=== PATIENT | female | born 1985 | race Caucasian/White ===

== ENCOUNTER 2016-07-20 19:30 | Emergency (ER) | payer OTHER ==
--- NOTE | 2016-07-20 21:36 | ED ORDER SUMMARY ---
..... Patient: LISE CHRISTOPHER OrderSheet [facility] VisitID: [id number] [place] [address] 31y, F Registration Date/Time: 07/20/2016 ORDER SHEET Weight: 72.5 kg Allergies: No Known Drug Allergy GENERAL ORDERS: CBC w Diff Urgent (19:52 07/20/2016 HBivens A.R.N.P.) (Ack 19:54 CHagerty ER Patch Washer) (20:06 JQuivey R.N.) CMP Urgent (19:52 07/20/2016 HBivens A.R.N.P.) (Ack 19:54 [facility] Patch Washer) (20:06 JQuivey R.N.) UA-Culture if indicated Urgent (19:52 07/20/2016 HBivens A.R.N.P.) (Ack 19:54 [facility] Patch Washer) (20:08 [facility]) Urine Urgent (19:52 07/20/2016 HBivens A.R.N.P.) (Ack 19:54 [facility] Patch Was[facility]) (20:[facility] Lipase Urgent (19:52 07/20/2016 HBivens A.R.N.P.) (Ack 19:54 [facility] Patch Washer) (20:06 JQuivey R.N.) Amylase Urgent (19:52 07/20/2016 HBivens A.R.N.P.) (Ack 19:54 [facility] Patch Washer) (20:06 JQuivey R.N.) MEDICATION ORDERS: IV FLUIDS: IV Saline Lock (19:52 07/20/2016 HBivens A.R.N.P.) (20:06 JQuivey R.N.) Toradol IV 30 mg (NOW) (19:52 07/20/2016 HBivens A.R.N.P.) (20:08 [facility] ORDER SHEET NOTES: [Electronically signed by Mely Cooley (21:55 07/20/2016)] [Electronically signed by Jessica Durham A.R.N.P. (23:51 07/20/2016)] [Electronically locked/signed by Mely Cooley (21:55 07/20/2016)]
--- NOTE | 2016-07-20 21:36 | ED NURSING NOTES ---
Clinical Report - Nurses [facility] [address] [place] [address] 07/20/2016 19:34 Patient: LISE CHRISTOPHER TRIAGE Triage time 0. Acuity: LEVEL 3. Chief Complaint: ABDOMINAL PAIN and (fatigue, low back pain). Alert. No acute distress. --19:46 Mely Cooley 19:43 07/20/16. BP: 113/76. HR: 76. RR: 16. O2 saturation: 100%. Temp: 97.8 F. Pain level now 06/19. --19:46 Mely Cooley. Weight: 72.5 kg. Height/Length: 62 inches. BMI: 29.3. --19:43 Mely Cooley. Medications None. --19:45 Mely Cooley. Medication/allergy information source: the patient. --19:46 Mely Cooley. Allergies No Known Drug Allergy. --19:45 Mely Cooley. History Arrived by private vehicle. Historian: patient. Accompanied by friend. Onset. (1 weeks ago). ( Pt denies UTI sxs). 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 (no tests were done). PAST MEDICAL HX: Last normal menstrual period- July 11. SOCIAL HX: Never smoker. Occasional alcohol use. FALL RISK ASSESSMENT: Fall risk assessment completed. No fall risk identified. NUTRITIONAL RISK ASSESSMENT: The nutritional risk assessment revealed no deficiencies. FUNCTIONAL ASSESSMENT: Functional assessment: no impairments noted. LEARNING NEEDS ASSESSMENT: The learning needs assessment revealed no barriers. SKIN INTEGRITY ASSESSMENT: Skin integrity risk assessment completed. No skin integrity risk identified. --19:46 Mely Cooley. ADDITIONAL SURGERIES: . --19:45 Mely Cooley. Interventions ID band on patient. To treatment room. --19:46 Mely oColey. PHYSICAL ASSESSMENT Ambulatory to room. Patient gowned. GENERAL / NEURO / PSYCH: Alert. Oriented X 4. Appears in no acute distress. HEENT: Mucous membranes are pink. RESPIRATORY: Respirations not labored. Breath sounds within normal limits. CVS: Normal sinus rhythm noted. Capillary refill less than 2 seconds. GI / : Abdomen soft. Abdominal tenderness in the suprapubic area and lower abdomen. Bowel sounds within normal limits. SKIN: Skin is warm and dry. --19:47 Mely Cooley BACK: Normal inspection of the back. ROM of the back is normal, and painless. --19:47 Mely Cooley. NURSING PROGRESS NOTES Head of bed elevated. Reassurance given. Side rails up x 1. Bed placed in lowest position. Brakes of bed on. Patient ready for evaluation- chart flagged. --19:48 Mely Cooley 20:00 07/20/2016 Site #1 started via IV in the right antecubital space with an 20g angiocath, with aseptic technique and good blood return; one attempt. Blood drawn: rainbow set. Labeled in the presence of the patient and sent to the lab. Saline lock flushed with 10 mL saline. --20:06 Milnid Romero, RBarbie 20:08 07/20/2016 Toradol IVP 30 mg given. via site #1. Allergies verified and confirmed 5 rights. IV patency established. IV site checked: no pain, redness, or swelling. IV flushed thoroughly pre- and post-medication administration. IVP given by RN. --20:08 Mely Cooley Reassessment after medication administered. She is resting quietly and has had no adverse reaction. Overall patient status is improved- she states feels better. --21:36 Mely Cooley 21:35 07/20/16. BP: 101/63. HR: 77. RR: 16. O2 saturation: 98%. Pain level now 05/20. --21:36 Mely Cooley. DISPOSITION / DISCHARGE Departure time: 2152. Condition at departure: improved and stable. No learning barriers present. Discharge instructions provided and reviewed with the patient. Reviewed warnings. Reviewed medication(s). Patient verbalized understanding. Written instructions provided in Estonian. The patient was discharged by the nurse practitioner. She was discharged home and accompanied by can line operator. She left the Emergency Department ambulatory and via private vehicle. Scowman driving. --21:54 Mely Cooley. Locked/Released at 07/20/2016 21:55 by Mely Cooley,
--- NOTE | 2016-07-20 21:36 | ED ORDER SUMMARY ---
..... Patient: LISE CHRISTOPHER OrderSheet [facility] VisitID: [id number] [place] [address] 31y, F Registration Date/Time: 07/20/2016 ORDER SHEET Weight: 72.5 kg Allergies: No Known Drug Allergy GENERAL ORDERS: CBC w Diff Urgent (19:52 07/20/2016 HBivens A.R.N.P.) (Ack 19:54 [facility] ER Chuck Wagon Driver) (20:06 JQuivey R.N.) CMP Urgent (19:52 07/20/2016 HBivens A.R.N.P.) (Ack 19:54 [facility] Chuck Wagon Driver) (20:06 JQuivey R.N.) UA-Culture if indicated Urgent (19:52 07/20/2016 HBivens A.R.N.P.) (Ack 19:54 [facility] ER Chuck Wagon Driver) (20:08 [facility]) Urine Urgent (19:52 07/20/2016 HBivens A.R.N.P.) (Ack 19:54 [facility] ER Chuck Wagon Driver) [facility] Lipase Urgent (19:52 07/20/2016 HBivens A.R.N.P.) (Ack 19:54 [facility] Chuck Wagon Driver) (20:06 JQuivey R.N.) Amylase Urgent (19:52 07/20/2016 HBivens A.R.N.P.) (Ack 19:54 [facility] Chuck Wagon Driver) (20:06 JQuivey R.N.) MEDICATION ORDERS: IV FLUIDS: IV Saline Lock (19:52 07/20/2016 HBivens A.R.N.P.) (20:06 JQuivey R.N.) Toradol IV 30 mg (NOW) (19:52 07/20/2016 HBivens A.R.N.P.) (20:[facility] ORDER SHEET NOTES: [Electronically signed by Mely Cooley (21:55 07/20/2016)] [Electronically signed by Jessica Durham A.R.N.P. (23:51 07/20/2016)] [Electronically locked/signed by Mely Cooley (21:55 07/20/2016)]
--- NOTE | 2016-07-20 21:36 | ED NURSING NOTES ---
Clinical Report - Nurses [facility] [address] [place] [address] 07/20/2016 19:34 Patient: LISE CHRISTOPHER TRIAGE Triage time 0. Acuity: LEVEL 3. Chief Complaint: ABDOMINAL PAIN and (fatigue, low back pain). Alert. No acute distress. --19:46 Mely Cooley 19:43 07/20/16. BP: 113/76. HR: 76. RR: 16. O2 saturation: 100%. Temp: 97.8 F. Pain level now 06/19. --19:46 Mely Cooley. Weight: 72.5 kg. Height/Length: 62 inches. BMI: 29.3. --19:43 Mely Cooley. Medications None. --19:45 Mely Cooley. Medication/allergy information source: the patient. --19:46 Mely Cooley. Allergies No Known Drug Allergy. --19:45 Mely Cooley. History Arrived by private vehicle. Historian: patient. Accompanied by friend. Onset. (1 weeks ago). ( Pt denies UTI sxs). 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 (no tests were done). PAST MEDICAL HX: Last normal menstrual period- July 11. SOCIAL HX: Never smoker. Occasional alcohol use. FALL RISK ASSESSMENT: Fall risk assessment completed. No fall risk identified. NUTRITIONAL RISK ASSESSMENT: The nutritional risk assessment revealed no deficiencies. FUNCTIONAL ASSESSMENT: Functional assessment: no impairments noted. LEARNING NEEDS ASSESSMENT: The learning needs assessment revealed no barriers. SKIN INTEGRITY ASSESSMENT: Skin integrity risk assessment completed. No skin integrity risk identified. --19:46 Mely Cooley. ADDITIONAL SURGERIES: . --19:45 Mely Cooley. Interventions ID band on patient. To treatment room. --19:46 Mely Cooley. PHYSICAL ASSESSMENT Ambulatory to room. Patient gowned. GENERAL / NEURO / PSYCH: Alert. Oriented X 4. Appears in no acute distress. HEENT: Mucous membranes are pink. RESPIRATORY: Respirations not labored. Breath sounds within normal limits. CVS: Normal sinus rhythm noted. Capillary refill less than 2 seconds. GI / : Abdomen soft. Abdominal tenderness in the suprapubic area and lower abdomen. Bowel sounds within normal limits. SKIN: Skin is warm and dry. --19:47 Mely Cooley BACK: Normal inspection of the back. ROM of the back is normal, and painless. --19:47 Mely Cooley. NURSING PROGRESS NOTES Head of bed elevated. Reassurance given. Side rails up x 1. Bed placed in lowest position. Brakes of bed on. Patient ready for evaluation- chart flagged. --19:48 Mely Cooley 20:00 07/20/2016 Site #1 started via IV in the right antecubital space with an 20g angiocath, with aseptic technique and good blood return; one attempt. Blood drawn: rainbow set. Labeled in the presence of the patient and sent to the lab. Saline lock flushed with 10 mL saline. --20:06 Milind Romero, RBarbie 20:08 07/20/2016 Toradol IVP 30 mg given. via site #1. Allergies verified and confirmed 5 rights. IV patency established. IV site checked: no pain, redness, or swelling. IV flushed thoroughly pre- and post-medication administration. IVP given by RN. --20:08 Mely Cooley Reassessment after medication administered. She is resting quietly and has had no adverse reaction. Overall patient status is improved- she states feels better. --21:36 Mely Cooley 21:35 07/20/16. BP: 101/63. HR: 77. RR: 16. O2 saturation: 98%. Pain level now 05/20. --21:36 Mely Cooley. DISPOSITION / DISCHARGE Departure time: 2152. Condition at departure: improved and stable. No learning barriers present. Discharge instructions provided and reviewed with the patient. Reviewed warnings. Reviewed medication(s). Patient verbalized understanding. Written instructions provided in Turkmen. The patient was discharged by the nurse practitioner. She was discharged home and accompanied by technology recruiter. She left the Emergency Department ambulatory and via private vehicle. Principle Industrial Hygienist driving. --21:54 Mely Cooley. Locked/Released at 07/20/2016 21:55 by Mely Cooley,
--- NOTE | 2016-07-20 21:36 | ED CLINICAL REPORT ---
Clinical Report - Physicians/Mid Levels [facility] [address] [place] [address] 07/20/2016 19:34 Patient: LISE CHRISTOPHER Time Seen: 1937; initial patient contact, initial documentation, patient care assumed. Arrived- By private vehicle. Historian- patient. HISTORY OF PRESENT ILLNESS Chief Complaint: ABDOMINAL PAIN. This started about 1 weeks ago and is still present. It was abrupt in onset. At its maximum, severity described as severe. When seen in the E.D., severity described as mild. Modifying factors. Not worsened by anything. Not relieved by anything. It is described as "pain" and it is described as located in the right abdomen and left abdomen and in the upper abdomen and radiating to the right lower back and to the left lower back. No nausea, loss of appetite, vomiting or diarrhea. No additional abdominal pain. No recent travel. Similar symptoms previously: Once, as bad. Recent medical care: The patient was seen recently in a clinic. ( went to clinic for same thing, nothing found wrong). REVIEW OF SYSTEMS No constipation, black stools, hematemesis, difficulty with urination or pain with urination. No urinary frequency, fever, chest pain or difficulty breathing. Denies current . All systems otherwise negative, except as recorded above. PAST HISTORY Negative. ADDITIONAL SURGERIES: . --19:45 Mely Cooley. SOCIAL HISTORY Never smoker. Occasional alcohol use. No drug use. No recent travel. Is a local resident. FAMILY HISTORY Negative. ADDITIONAL NOTES The nursing notes have been reviewed with agreement regarding the chief complaint, HPI, ROS, PMH and patient medications and allergies. PHYSICAL EXAM Vital Signs: 07/20/2016 19:43 BP: 113/76. HR: 76. RR: 16. O2 saturation: 100%. Temp: 97.8 F. Have been reviewed as normal and appear to be correct. Appearance: Alert. Oriented X3. No acute distress. Eyes: Pupils equal, round and reactive to light. Eyes normal inspection. Neck: Normal inspection. Neck supple. CVS: Normal heart rate and rhythm. Heart sounds normal. Pulses normal. Respiratory: No respiratory distress. Breath sounds normal. Chest nontender. Abdomen: Soft and nontender. Bowel sounds normal. No organomegaly. No mass. Back: Normal inspection. Skin: Skin warm and dry. Normal skin color. No rash. Normal skin turgor. Extremities: Extremities exhibit normal ROM. No lower extremity edema. Neuro: Oriented X 3. No motor deficit. No sensory deficit. LABS, X-RAYS, AND EKG Laboratory Tests: UA-Culture if indicated: (WILFREDO: 07/20/2016 19:40) ( [facility] 20:32) Final results Test Result Flag Units (Reference) URINE COLOR YELLOW URINE APPEARANCE CLEAR URINE GLUCOSE NEGATIVE (NEGATIVE) URINE BILIRUBIN NEGATIVE (NEGATIVE) URINE KETONE NEGATIVE (NEGATIVE) URINE SPECIFIC GRAVITY 1.025 (1.010-1.030) URINE PH 5.5 (5.0-8.0) URINE PROTEIN NEGATIVE (NEGATIVE) URINE UROBILINOGEN 0.2 EU/dL (0.2-1.0) URINE NITRITE NEGATIVE (NEGATIVE) URINE BLOOD NEGATIVE (NEGATIVE) URINE LEUK ESTERASE NEGATIVE (NEGATIVE) URINE RBC NONE SEEN rbc/hpf (0-1) URINE WBC 1-3 wbc/hpf (0-1) URINE EPITHELIAL CELLS 5-10 EPI/hpf (0-5) URINE BACTERIA MODERATE (2+ TO 3+) (NONE SEEN) URINE COMMENT CULTURE INDICATED URINE CULTURES ARE SET-UP BASED ON THE FOLLOWING CRITERIA:POSITIVE NITRITEPOSITIVE LEUKOCYTE ESTERASEGREATER THAN 10 WHITE BLOOD CELLSMODERATE (2+) OR GREATER BACTERIA Urine: (WILFREDO: 07/20/2016 19:40) ( [facility] 07/20/2016 20:11) Final results Test Result Flag Units (Reference) URINE NEGATIVE CBC w Diff: (WILFREDO: 07/20/2016 20:00) ( [facility] 07/20/2016 20:40) Final results Test Result Flag Units (Reference) WHITE BLOOD COUNT 7.4 K/uL (4.5-11.5) RED BLOOD COUNT 4.45 M/uL (4.00-5.20) HEMOGLOBIN 13.5 gm/dL (12.0-16.0) HEMATOCRIT 40.6 % (36.0-46.0) MEAN CELL VOLUME 91 fL (80-100) MEAN CORPUSCULAR HGB 30 pg (26-34) MEAN CORPUSCULAR HGB CONC 33 g/dL (31-37) RED CELL DISTRIBUTION WIDTH 13.5 % (11.6-14.8) PLATELET COUNT 267 K/uL (150-400) NEUTROPHIL % 48.7 L % (50-75) LYMPH % 41.5 H % (25-40) MONO % 8.0 % (3-14) EOSINOPHIL % 1.2 % (0-4) BASOPHIL % 0.6 % (0-2) CMP: (WILFREDO: 07/20/2016 20:00) ( MsgRcvd 07/20/2016 20:46) Final results Test Result Flag Units (Reference) GLUCOSE 95 mg/dL (70-110) BUN 19 H mg/dL (7-18) CREATININE 0.9 mg/dL (0.6-1.3) Estimated GFR >60 mL/min Estimated GFR- >60 mL/min Note: Persistent reduction over 3 months in eGFR<60 mL/min/1.73 m2 defines CKD. Patients with eGFR values>=60 mL/min/1.73 m2 may also have CKD if evidence ofpersistent proteinuria. Additional information may be foundat www.kidney.org. SODIUM 145 mmol/L (136-145) POTASSIUM 3.4 L mmol/L (3.5-5.1) CHLORIDE 108 H mmol/L (98-107) CARBON DIOXIDE 26 mmol/L (21-32) CALCIUM 8.6 mg/dL (8.5-10.1) TOTAL PROTEIN 7.4 g/dL (6.4-8.2) ALBUMIN 3.7 g/dL (3.3-5.0) BILIRUBIN, TOTAL 0.3 mg/dL (0.0-1.0) ALKALINE PHOSPHATASE 63 U/L (46-116) AST (SGOT) 15 U/L (15-37) ALT (SGPT) 22 U/L (12-78) LIPASE 206 U/L (73-393) AMYLASE 66 U/L (25-115) . PROGRESS AND PROCEDURES Course of Care: 07/20/2016 21:35 BP: 101/63. HR: 77. RR: 16. O2 saturation: 98%. Vital Signs: have been reviewed as normal and appear to be correct. Patient counseled in person regarding the patient's stable condition, test results and diagnosis. 2129. Differential Diagnosis: I considered gastritis, gastroenteritis, peptic ulcer disease, gastroesophageal reflux disease, acute appendicitis, diverticulitis, colon cancer, Crohn's disease, obstipation, biliary colic, cholecystitis, cholelithiasis, hepatitis, pancreatitis, common bile duct obstruction, urinary tract infection, ureterolithiasis, and viral syndrome as a possible cause of abdominal pain in this patient. This is a partial list of diagnoses considered. Above considerations are based on history, physical exam, reassessment and laboratory data. Differential diagnosis was discussed with patient. Disposition: Discharged home in good and improved condition (21:36). Condition: good and stable. CLINICAL IMPRESSION Acute abdominal pain of undetermined cause. INSTRUCTIONS Warnings: GENERAL WARNINGS: Return or contact your physician immediately if your condition worsens or changes unexpectedly, if not improving as expected, or if other problems arise. SPECIFICALLY, return if you develop pain in the abdomen or pelvis, fever, the inability to keep fluids down, blood in vomitus, blood in diarrhea, fainting or lightheadedness. Prescription Medications: Ultram 50 mg tablets: take 1-2 orally every 6 hours as needed for pain. Dispense twenty (20). No refills. Substitution is permissible. Follow-up: Follow up with your doctor in about two days even if well. Call for an appointment. Summary of care provided to patient. Understanding of the discharge instructions verbalized by patient. (Electronically signed by Jessica Durham A.R.N.P. 07/20/2016 23:51)
--- NOTE | 2016-07-20 23:51 | ED MED RECONCILIATION SUMMARY ---
Patient: LISE CHRISTOPHER Medication Reconciliation Report [facility] VisitID: [id number] [address] [place] [address] 31y, F Registration Date/Time: 07/20/2016 Weight: 72.5 kg Height/Length: 62 in. BMI: 29.3 ALLERGIES: No Known Drug Allergy The patient's Home Medications are listed below: NONE. The source(s) of the original Home Medication information: patient The following Medications were given to the patient in the Emergency Department: Toradol [IVP] IVP 30 mg, administered: 07/20/2016 8:08:00 PM The following Medications were prescribed to the patient: Ultram 50 mg tablets: take 1-2 orally every 6 hours as needed for pain. Dispense twenty (20). No refills. Substitution is permissible. -- Jessica Durham A.R.N.P.
--- NOTE | 2016-07-20 23:51 | ED DISCHARGE INSTRUCTIONS ---
Patient: LISE CHRISTOPHER General Instructions [facility] VisitID: [id number] [place] [address] 31y, F Registration Date/Time: 07/20/2016 Acute abdominal pain of undetermined cause. INSTRUCTIONS Warnings: GENERAL WARNINGS: Return or contact your physician immediately if your condition worsens or changes unexpectedly, if not improving as expected, or if other problems arise. SPECIFICALLY, return if you develop pain in the abdomen or pelvis, fever, the inability to keep fluids down, blood in vomitus, blood in diarrhea, fainting or lightheadedness. Prescription Medications: Ultram 50 mg tablets: take 1-2 orally every 6 hours as needed for pain. Dispense twenty (20). No refills. Substitution is permissible. Follow-up: Follow up with your doctor in about two days even if well. Call for an appointment. Summary of care provided to patient. Understanding of the discharge instructions verbalized by patient. ADDITIONAL INFORMATION Abdominal Pain, Unknown Cause (Female) The exact cause of your abdominal (stomach) pain is not certain. This does not mean that this is something to worry about, or the right tests were not done. Everyone likes to know the exact cause of the problem, but sometimes with abdominal pain, there is no clear-cut cause, and this could be a good thing. The good news is that your symptoms can be treated, and you will feel better. Your condition does not seem serious now; however, sometimes the signs of a serious problem may take more time to appear. For this reason,it is important for you to watch for any new symptoms, problems,or worsening of your condition. Over the next few days, the abdominal pain may come and go, or be continuous. Other common symptoms can include nausea and vomiting. Sometimes it can be difficult to tell if you feel nauseous, you may just feel bad and not associate that feeling with nausea. Constipation, diarrhea, and a fever may go along with the pain. The pain may continue even if treated correctly over the following days. Depending on how things go, sometimes the cause can become clear and may require further or different treatment. Additional evaluations, medications, or tests may be needed. Home care Your health care provider may prescribe medications for pain, symptoms, or an infection. Follow the health care provider's instructions for taking these medications. General care Rest until your next exam. No strenuous activities. Try to find positions that ease discomfort. A small pillow placed on the abdomen may help relieve pain. Something warm on your abdomen (such as a heating pad) may help, but be careful not to burn yourself. Diet Do not force yourself to eat, especially if having cramps, vomiting, or diarrhea. Water is important so you do not get dehydrated. Soup may also be good. Sports drinks may also help, especially if they are not too acidic. Make sure you don't drink sugary drinks as this can make things worse. Take liquids in small amounts. Do not guzzle them. Caffeine sometimes makes the pain and cramping worse. Avoid dairy products if you have vomiting or diarrhea. Don't eat large amounts at a time. Wait a few minutes between bites. Eat a diet low in fiber (called a low-residue diet). Foods allowed include refined breads, white rice, fruit and vegetable juices without pulp, tender meats. These foods will pass more easily through the intestine. Avoid whole-grain foods, whole fruits and vegetables, meats, seeds and nuts, fried or fatty foods, dairy, alcohol and spicy foods until your symptoms go away. Follow-up care Follow up with your health care provider as instructed, or if your pain does not begin to improve in the next 24 hours. When to seek medical care Seek prompt medical care if any of the following occur: Pain gets worse or moves to the right lower abdomen New or worsening vomiting or diarrhea Swelling of the abdomen Unable to pass stool for more than three days Fever of 100.4F (38C) or higher, or as directed by your healthcare provider. Blood in vomit or bowel movements (dark red or black color) Jaundice (yellow color of eyes and skin) Weakness, dizziness Chest, arm, back, neck or jaw pain Unexpected vaginal bleeding or missed period Call 911 Call emergency services if any of the following occur: Trouble breathing Confusion Fainting or loss of consciousness Rapid heart rate Seizure Abdominal Pain,Possible Appendicitis [Repeat Exam, Female] Based on your visit today, the exact cause of your abdominal (stomach) pain is not certain. However, you do have some of the early signs of APPENDICITIS. Early in an appendix infection the symptoms can be similar to a simple "stomach ache" or "stomach flu". Therefore, the diagnosis can be hard to make. Since an appendix infection is a serious condition, it is important to know if this is the cause of your symptoms. WAITING for more time to pass and repeating the exam is the best way to find out whether you have appendicitis. Within the next 12-24 hours the cause of your stomach pain should become clear. It is important for you to watch for any new symptoms or worsening of your condition. (See below). Home Care: Rest until your next exam. No strenuous activities. Eat a diet low in fiber (called a low-residue diet). Foods allowed include refined breads, white rice, fruit and vegetable juices without pulp, tender meats. These foods will pass more easily through the intestine. Avoid whole-grain foods, whole fruits and vegetables, meats, seeds and nuts, fried or fatty foods, dairy, alcohol and spicy foods until your symptoms go away. In some cases, you may be asked not to eat or drink anything until you are re-examined. Return for another exam exactly as directed. Follow Up with your doctor or this facility as directed. Get Prompt Medical Attention if any of the following occur: Pain gets worse or moves to the right lower abdomen New or worsening vomiting or diarrhea Swelling of the abdomen Unable to pass stool for more than three days Fever of 100.4F (38C) or higher, or as directed by your healthcare provider Blood in vomit or bowel movements (dark red or black color) Weakness, dizziness or fainting Unexpected vaginal bleeding Tramadol Hydrochloride Oral tablet What is this medicine? TRAMADOL (TRA ma dole) is a pain reliever. It is used to treat moderate to severe pain in adults. How should I use this medicine? Take this medicine by mouth with a full glass of water. Follow the directions on the prescription label. If the medicine upsets your stomach, take it with food or milk. Do not take more medicine than you are told to take. Talk to your analysis analyst regarding the use of this medicine in children. Special care may be needed. What side effects may I notice from receiving this medicine? Side effects that you should report to your doctor or health career professional as soon as possible: allergic reactions like skin rash, itching or hives, swelling of the face, lips, or tongue breathing difficulties, wheezing confusion itching light headedness or fainting spells redness, blistering, peeling or loosening of the skin, including inside the mouth seizures Side effects that usually do not require medical attention (report to your doctor or health career professional if they continue or are bothersome): constipation dizziness drowsiness headache nausea, vomiting What may interact with this medicine? Do not take this medicine with any of the following medications: MAOIs like Carbex, Eldepryl, Marplan, Nardil, and Parnate This medicine may also interact with the following medications: alcohol or medicines that contain alcohol antihistamines benzodiazepines bupropion carbamazepine or oxcarbazepine clozapine cyclobenzaprine digoxin furazolidone linezolid medicines for depression, anxiety, or psychotic disturbances medicines for migraine headache like almotriptan, eletriptan, frovatriptan, naratriptan, rizatriptan, sumatriptan, zolmitriptan medicines for pain like pentazocine, buprenorphine, butorphanol, meperidine, nalbuphine, and propoxyphene medicines for sleep muscle relaxants naltrexone phenobarbital phenothiazines like perphenazine, thioridazine, chlorpromazine, mesoridazine, fluphenazine, prochlorperazine, promazine, and trifluoperazine procarbazine warfarin What if I miss a dose? If you miss a dose, take it as soon as you can. If it is almost time for your next dose, take only that dose. Do not take double or extra doses. Where should I keep my medicine? Keep out of the reach of children. Store at room temperature between 15 and 30 degrees C (59 and 86 degrees F). Keep container tightly closed. Throw away any unused medicine after the expiration date. What should I tell my health care provider before I take this medicine? They need to know if you have any of these conditions: brain tumor depression drug abuse or addiction head injury if you frequently drink alcohol containing drinks kidney disease or trouble passing urine liver disease lung disease, asthma, or breathing problems seizures or epilepsy suicidal thoughts, plans, or attempt; a previous suicide attempt by you or a family member an unusual or allergic reaction to tramadol, codeine, other medicines, foods, dyes, or preservatives or trying to get breast-feeding What should I watch for while using this medicine? Tell your doctor or health career professional if your pain does not go away, if it gets worse, or if you have new or a different type of pain. You may develop tolerance to the medicine. Tolerance means that you will need a higher dose of the medicine for pain relief. Tolerance is normal and is expected if you take this medicine for a long time. Do not suddenly stop taking your medicine because you may develop a severe reaction. Your body becomes used to the medicine. This does NOT mean you are addicted. Addiction is a behavior related to getting and using a drug for a non-medical reason. If you have pain, you have a medical reason to take pain medicine. Your doctor will tell you how much medicine to take. If your doctor wants you to stop the medicine, the dose will be slowly lowered over time to avoid any side effects. You may get drowsy or dizzy. Do not drive, use machinery, or do anything that needs mental alertness until you know how this medicine affects you. Do not stand or sit up quickly, especially if you are an older patient. This reduces the risk of dizzy or fainting spells. Alcohol can increase or decrease the effects of this medicine. Avoid alcoholic drinks. You may have constipation. Try to have a bowel movement at least every 2 to 3 days. If you do not have a bowel movement for 3 days, call your doctor or health career professional. Your mouth may get dry. Chewing sugarless gum or sucking hard candy, and drinking plenty of water may help. Contact your doctor if the problem does not go away or is severe. You have been given the following additional information: Abdominal Pain, Unknown Cause, (Female) Abdominal Pain, Possible Appendicitis (Female) Tramadol Hydrochloride Oral tablet (Electronically signed by Jessica Durham A.R.N.P. 07/20/2016 23:51)
--- NOTE | 2016-07-20 23:51 | ED MED RECONCILIATION SUMMARY ---
Patient: LISE CHRISTOPHER Medication Reconciliation Report [facility] VisitID: [id number] [address] [place] [address] 31y, F Registration Date/Time: 07/20/2016 Weight: 72.5 kg Height/Length: 62 in. BMI: 29.3 ALLERGIES: No Known Drug Allergy The patient's Home Medications are listed below: NONE. The source(s) of the original Home Medication information: patient The following Medications were given to the patient in the Emergency Department: Toradol [IVP] IVP 30 mg, administered: 07/20/2016 8:08:00 PM The following Medications were prescribed to the patient: Ultram 50 mg tablets: take 1-2 orally every 6 hours as needed for pain. Dispense twenty (20). No refills. Substitution is permissible. -- Jessica Durham A.R.N.P.
--- NOTE | 2016-07-20 23:51 | ED MAR SUMMARY ---
..... Medication Administration Record [facility] [address] [place] [address] Patient: LISE CHRISTOPHER Visit ID: [id number] 31y, F Weight: 72.5 kg Height/Length: 62 in BMI: 29.3 ALLERGIES: No Known Drug Allergy Given 20:08 07/20/2016 Mely Cooley, Medication Administered: TORADOL [IVP], Dose: 30 mg IVP, Site: #1 right AC. Medication Ordered: Toradol IV 30 mg (NOW).
--- NOTE | 2016-07-20 23:51 | ED MAR SUMMARY ---
..... Medication Administration Record [facility] [address] [place] [address] Patient: LISE CHRISTOPHER Visit ID: [id number] 31y, F Weight: 72.5 kg Height/Length: 62 in BMI: 29.3 ALLERGIES: No Known Drug Allergy Given 20:08 07/20/2016 Mely Cooley, Medication Administered: TORADOL [IVP], Dose: 30 mg IVP, Site: #1 right AC. Medication Ordered: Toradol IV 30 mg (NOW).
== END 2016-07-20 21:52 | disposition home or self-care (01) ==
LOC: ED SRH 19:30
DX: R10.10 Upper abdominal pain, unspecified (principal)
CPT/HCPCS: 90004; 90100; 90469; 92235; 92530; 93070; 95059